=== PATIENT | female | born 1985 | race Caucasian/White ===

== ENCOUNTER 2018-07-02 05:02 | Emergency (ER) | payer BC ==
[2018-07-02] MEDS ORDERED: Ondansetron ODT 8 MG TAB ONE ×3 (05:20→05:24)
[2018-07-02 05:46] LABS: Bacteria/HPF Rare-Few HPF (None Seen); Bilirubin Negative (Negative); Blood, Urine Large (Negative); Clarity Slightly Cloudy (Clear); Glucose, Urine (Dipstick) Negative (Negative); Hyaline Casts/LPF NONE SEEN LPF (0-3 Hyaline); Leukocyte Negative (Negative); Nitrite Negative (Negative); Protein, Urine (Dipstick) Trace mg/dL (Neg-Trace); RBC/HPF 21-50 HPF (0-3); Specific Gravity, Urine 1.025 (1.002-1.036); Squamous Epithelial 0-3 HPF (0-3); Urobilinogen 0.2 mg/dL (0.2-1.0); WBC/HPF 0-3 HPF (0-3); pH, Urine 5.5 (5.0-9.0)
--- NOTE | 2018-07-02 08:04 | ULT ---
TRANSVAGINAL PELVIC ULTRASOUND WITH GRAYSCALE AND DOPPLER COLORFLOW: CLINICAL INDICATIONS: Vaginal bleeding. History of imaged gestational sac on outside imaging. FINDINGS: Within the endometrium, there is an oval-shaped, hypoechoic focus. No internal contents are visualiz ed to confirm pole or yolk sac. Mild free pelvic fluid is seen, nonspecific. No significant a bnormality of either ovary. Doppler evaluation is performed, which does reveal vascularity of each o vary. IMPRESSION: Small hypoechoic focus, which could relate to an early gestational sac and, if so, would correspond t o an approximately 2-utjc-4-day gestation. Therefore, this could relate to an early intrauterine ges tation, pending correlation with clinical evaluation and beta hCG values. Recommend continued short- term imaging followup to confirm expected evolution. CODE T POS: YOEL
[2018-07-03 00:55] LABS: Chlamydia by PCR Not Detected (NotDetected); GC by PCR Not Detected (NotDetected)
== END 2018-07-02 07:25 | disposition home or self-care (01) ==
LOC: SCSER 05:02
DX: O20.9 Hemorrhage in early pregnancy, unspecified (principal); Z3A.01 Less than 8 weeks gestation of pregnancy
CPT/HCPCS: 36415; 76856; 81003; 81015; 84702; 87480; 87491; 87510; 87591; 87660

== ENCOUNTER 2018-07-06 10:53 | Day surgery (SDC) | payer BC ==
[2018-07-05 17:21] VITALS: BMI 29.0
[2018-07-06 13:02] LABS: Mean Corpuscular HGB CONC 33.5 g/dL (32.0-36.0); Mean Corpuscular Hemoglobin 30.2 pg (27.0-31.0); Mean Corpuscular Volume 89.9 fL (78.0-98.0); Mean Platelet Volume 6.9 fL (7.4-10.4); Platelet Count 176 thou/uL (130-400); Red Blood Cell (RBC) Count 3.98 mill/uL (4.20-5.40); White Blood Cell (WBC) Count 6.9 thou/uL (4.8-10.8)
[2018-07-06] MEDS ORDERED: Midazolam HCl 2 mg/2 ml Vial ONE (13:12)
[2018-07-06] MEDS ORDERED: Scopolamine 1.5 mg/72 hour Patch ONE (13:17)
[2018-07-06] MEDS ORDERED: Famotidine/PF 20 mg/2ml Vial ONE (13:17)
[2018-07-06] MEDS ORDERED: Misoprostol 200 MCG TAB ONE (13:18)
[2018-07-06] MEDS ORDERED: Fentanyl 100 MCG/2 ML VIAL ONE (13:23)
[2018-07-06] MEDS ORDERED: Lidocaine 1% PF 5 ML VIAL ONE (14:40)
[2018-07-06] MEDS ORDERED: Dexamethasone 20 MG/5 ML VIAL ONE (14:40)
[2018-07-06] MEDS ORDERED: Ketorolac Tromethamine 30 MG/ML VIAL ONE (14:40)
[2018-07-06] MEDS ORDERED: Ondansetron PF 4 MG/2 ML Vial ONE (14:40)
[2018-07-06] MEDS ORDERED: Glycopyrrolate 0.2 MG/ML 5 ML SYRINGE ONE (14:40)
[2018-07-06] MEDS ORDERED: Succinylcholine Chloride 20 MG/ML 10 ml SYRINGE FS ONE (14:40)
[2018-07-06] MEDS ORDERED: PROPOFOL 200 MG/20 ML VIAL ONE (14:40)
[2018-07-06] MEDS ORDERED: Rocuronium Bromide 10 MG/ML (10ML VIAL) ONE (14:40)
[2018-07-06] MEDS ORDERED: Meperidine HCl/PF 25 MG/ML VIAL ONE (14:54)
[2018-07-06] MEDS ORDERED: HYDROcodone/Acetaminophen 5/325 mg Tablet ONE (15:24)
--- NOTE | 2018-07-09 10:07 | OP ---
DATE OF PROCEDURE: 07/06/2018 PREOPERATIVE DIAGNOSIS: Incomplete at 6 weeks. POSTOPERATIVE DIAGNOSIS: Incomplete at 6 weeks. PROCEDURES PERFORMED: Suction dilation and curettage. ANESTHESIA: General LMA. ENROLLMENT MANAGEMENT DIRECTOR SURGEON: None. ESTIMATED BLOOD LOSS: 20 mL. IVF: 1 L crystalloid. URINE OUTPUT: 200 mL clear urine. COMPLICATIONS: None. PATHOLOGY: Products of conception. DRAINS: None. FINDINGS: On exam under anesthesia, mobile 6-week size uterus was noted. The cervix was dilated to 1 cm and there was a large amount of products of conception in the lower uterine segment and cervix that were removed. The uterus was well contracted and no active bleeding was present at the conclusion of the procedure. OPERATIVE TECHNIQUE: The patient was taken to the operating room, where general anesthesia was obtained without difficulty. The patient was prepped and draped in a sterile fashion in the [facility]. The patient was given Ancef 2 g prior to the procedure. An I and O catheter was performed on the bladder. A speculum was placed in the vagina. The anterior lip of the cervix was grasped with single-tooth tenaculum. The cervix was then progressively dilated with Hira dilators. An 8 mm suction cannula was then assembled to the suction tubing and the machine was turned on and turned to a maximum pressure of 55 mmHg. The suction cannula was then passed into the uterus to the fundus and using a circular motion withdrawn slowly removing clot and products of conception through the tubing. This was performed x3 additional passes until there was minimal return of products of blood through the tubing. Sharp curettage was then taken to the 4 uterine quadrants until a gritty texture was noted. Again, a suction cannula was passed to the uterine fundus and removed several times. Again, sharp curettage was performed following this to ensure no retained products of conception. The uterus was noting to contract down well. An 800 mcg of Cytotec were placed in the rectum for the additional uterine tone and the suction cannula was passed 1 additional time to remove any clot and fundal massage was performed. The cervix was then observed for several minutes and no active bleeding was noted from the cervix. The tenaculum was removed and tenaculum site was hemostatic with pressure. All instruments were removed from the vagina. The patient tolerated the procedure well. Sponge and needle counts were correct x2. The patient was taken to recovery room in stable condition. Job ID: [id number]
== END 2018-07-06 16:25 | disposition home or self-care (01) ==
LOC: SDC 10:53
PROVIDERS: ATTEND Student in an Organized Health Care Education/Training Program
PROC: 10D17ZZ Extraction of Products of Conception, Retained, Via Natural or Artificial Opening (ICD-10-PCS; principal; 2018-07-06)
DX: O03.1 Delayed or excessive hemorrhage following incomplete spontaneous abortion (principal); Z79.899 Other long term (current) drug therapy
CPT/HCPCS: 36415; 85027; 86850; 86900; 86901; 88305; J1100; J1885; J2001; J2175; J2250; J2405; J2704; J3010; S0028